=== PATIENT | female | born 1990 | race Caucasian/White ===

== ENCOUNTER 2022-11-17 03:40 | Inpatient (IN) | payer BC, MEDICAID ==
[2022-11-17] MEDS ORDERED: Lactated Ringers 1,000 ML IV ONE (07:58)
[2022-11-17] MEDS ORDERED: Methylergonovine 0.2 MG/1 ML Amp IM PRN (07:58)
[2022-11-17] MEDS ORDERED: Acetaminophen 325 MG Tab PO PRN ×2 (07:58)
[2022-11-17] MEDS ORDERED: Sodium Chloride 0.9% 10 ML Syringe FLUSH PRN (07:58)
[2022-11-17] MEDS ORDERED: Misoprostol 400 MCG (4 X 100 MCG TAB) RECTAL PRN (07:58)
[2022-11-17] MEDS ORDERED: Carboprost Tromethamine 250 MCG/1 ML Amp IM PRN (07:58)
[2022-11-17] MEDS ORDERED: Tranexamic Acid 1,000 MG in Sodium Chloride 0.9% 100 ML IV PRN (07:58)
[2022-11-17] MEDS ORDERED: Lidocaine 1% 30 ML SDV INJECT ONE (07:58)
[2022-11-17] MEDS ORDERED: Oxytocin/Normal Saline 30 UNIT/500 ML BAG IV SCH ×2 (08:00)
[2022-11-17] MEDS ORDERED: Misoprostol 50 MCG (1/2 of 100 MCG) Tab VAG ONE (08:10)
[2022-11-17 09:08] LABS: HEMATOCRIT 38.5 % (37.0-47.0); HEMOGLOBIN 12.6 g/dL (12.0-16.0); MEAN CORPUSCULAR HEMOGLOBIN 30.9 pg (27.0-34.0); MEAN CORPUSCULAR HGB CONC 32.7 g/dL (33.0-35.0); MEAN CORPUSCULAR VOLUME 94.4 fL (80-100); RED BLOOD CELL COUNT 4.08 10^6/uL (4.2-5.4); WHITE BLOOD CELL COUNT,WBC 8.2 10^3/uL (5.0-10.0)
[2022-11-17] MEDS: Misoprostol 25 MCG (1/4 of 100 MCG) Tab VAG PRN ×2 (13:30→17:45)
[2022-11-17] MEDS: Lactated Ringers 1,000 ML IV SCH (21:25)
[2022-11-18] MEDS: Ondansetron 4 MG/2 ML SDV IVPUSH PRN ×3 (00:04→15:50)
[2022-11-18] MEDS: Lactated Ringers 1,000 ML IV SCH ×4 (00:07→20:45)
[2022-11-18] MEDS ORDERED: fentaNYL 100 MCG/2 ML SDV ONE (00:09)
[2022-11-18] MEDS ORDERED: Bupivacaine 0.25% 10 ML SDV ONE (00:10)
[2022-11-18] MEDS ORDERED: ePHEDrine 50 MG/ML SDV IVPUSH PRN ×2 (00:30→02:27)
[2022-11-18] MEDS ORDERED: Ropivacaine 200 MG in Premix Bag 1 BAG EPIDUR SCH (00:30)
[2022-11-18] MEDS ORDERED: Phenylephrine HCl In 0.9% NaCl 1 MG/10 ML Syringe IVPUSH PRN (00:30)
[2022-11-18] MEDS ORDERED: Clindamycin in 0.9 % Sod Chlor 900 MG in Premix Bag 1 BAG IV ONE ×2 (02:25)
[2022-11-18] MEDS ORDERED: diphenhydrAMINE 50 MG/ML SDV IVPUSH PRN (02:27)
[2022-11-18] MEDS ORDERED: Naloxone 2 MG/2 ML Syringe IVPUSH PRN (02:27)
[2022-11-18] MEDS ORDERED: Gentamicin 40 MG/ML 2 ML Vial IV ONE (02:30)
[2022-11-18] MEDS ORDERED: Azithromycin 500 MG in Sodium Chloride 0.9% 250 ML IV ONE (02:43)
[2022-11-18] MEDS ORDERED: Lidocaine 2% with EPINEPHrine 1:200,000 20 ML SDV ONE (03:02)
[2022-11-18] MEDS ORDERED: Oxytocin/Normal Saline 30 UNIT/500 ML BAG ONE (03:17)
[2022-11-18] MEDS ORDERED: Phenylephrine 1% 10 MG/ML SDV ONE (03:28)
[2022-11-18] MEDS ORDERED: SODIUM CHLORIDE 0.9% IV ONE (03:30)
[2022-11-18] MEDS ORDERED: GENTAMICIN IV ONE (03:30)
[2022-11-18] MEDS ORDERED: Oxytocin 10 Units/1 ML SDV ONE (03:43)
[2022-11-18] MEDS ORDERED: Sodium Chloride 0.9% 100 ML ONE (03:49)
[2022-11-18] MEDS: Sodium Chloride 0.9% 10 ML Syringe FLUSH SCH ×3 (06:49→17:22)
[2022-11-18] MEDS: Simethicone 80 MG Tab.Chew PO SCH ×3 (10:15→19:09)
[2022-11-18] MEDS: Prenatal Multivitamin with Calcium/Folic Acid/Iron Tab PO SCH (10:15)
[2022-11-18] MEDS: Ketorolac 30 MG/ML SDV IVPUSH SCH ×3 (10:15→22:20)
[2022-11-18] MEDS ORDERED: Scopolamine 1.5 MG Transdermal Patch TRDERM PRN (10:31)
[2022-11-18 15:16] LABS: HEMATOCRIT 37.7 % (37.0-47.0); HEMOGLOBIN 12.7 g/dL (12.0-16.0); MEAN CORPUSCULAR HEMOGLOBIN 31.8 pg (27.0-34.0); MEAN CORPUSCULAR HGB CONC 33.7 g/dL (33.0-35.0); MEAN CORPUSCULAR VOLUME 94.5 fL (80-100); RED BLOOD CELL COUNT 3.99 10^6/uL (4.2-5.4)
[2022-11-18] MEDS ORDERED: Metoclopramide 10 MG/2 ML SDV IVPUSH PRN (15:30)
[2022-11-19] MEDS: Sodium Chloride 0.9% 10 ML Syringe FLUSH SCH ×3 (03:01→21:25)
[2022-11-19] MEDS: Simethicone 80 MG Tab.Chew PO SCH ×4 (03:01→21:25)
[2022-11-19] MEDS: Lactated Ringers 1,000 ML IV SCH (04:30)
[2022-11-19] MEDS: Ibuprofen 800 MG Tab PO PRN ×3 (05:47→23:04)
[2022-11-19 06:17] LABS: HEMATOCRIT 35.8 % (37.0-47.0); MEAN CORPUSCULAR HGB CONC 33.5 g/dL (33.0-35.0); MEAN CORPUSCULAR VOLUME 95.5 fL (80-100); RED BLOOD CELL COUNT 3.75 10^6/uL (4.2-5.4); WHITE BLOOD CELL COUNT,WBC 13.7 10^3/uL (5.0-10.0)
[2022-11-19] MEDS: Prenatal Multivitamin with Calcium/Folic Acid/Iron Tab PO SCH (09:17)
[2022-11-19] MEDS: Docusate Sodium 100 MG Cap PO PRN ×2 (09:19→21:24)
[2022-11-19] MEDS: Acetaminophen/oxyCODONE 325-5 MG Tab PO PRN ×3 (12:52→21:23)
[2022-11-20] MEDS: Acetaminophen/oxyCODONE 325-5 MG Tab PO PRN ×4 (02:31→21:26)
[2022-11-20] MEDS: Prenatal Multivitamin with Calcium/Folic Acid/Iron Tab PO SCH (09:58)
[2022-11-20] MEDS: Sodium Chloride 0.9% 10 ML Syringe FLUSH SCH ×2 (09:58→21:09)
[2022-11-20] MEDS: Simethicone 80 MG Tab.Chew PO SCH ×4 (09:58→21:09)
[2022-11-20] MEDS: Ibuprofen 800 MG Tab PO PRN (19:37)
[2022-11-20] MEDS: Docusate Sodium 100 MG Cap PO PRN (21:26)
[2022-11-21] MEDS: Acetaminophen/oxyCODONE 325-5 MG Tab PO PRN ×2 (01:47→08:14)
[2022-11-21] MEDS: Prenatal Multivitamin with Calcium/Folic Acid/Iron Tab PO SCH (08:14)
[2022-11-21] MEDS: Docusate Sodium 100 MG Cap PO PRN (08:14)
[2022-11-21] MEDS: Ibuprofen 800 MG Tab PO PRN (08:14)
[2022-11-21] MEDS: Simethicone 80 MG Tab.Chew PO SCH (09:09)
[2022-11-21] MEDS: Sodium Chloride 0.9% 10 ML Syringe FLUSH SCH (09:09)
[2022-11-21 09:10] VITALS: BP 119/66; PULSE 84
== END 2022-11-21 11:45 | disposition home or self-care (01) | DRG 540 ==
LOC: DL.OB 03:40 → MERGE 11-18 03:40 → OBSVTOIN 11-18 03:40
PROVIDERS: ADMIT Family Medicine; ATTEND Family Medicine
PROC: 10D00Z1 Extraction of Products of Conception, Low, Open Approach (ICD-10-PCS; principal; 2022-11-18)
PROC: 10907ZC Drainage of Amniotic Fluid, Therapeutic from Products of Conception, Via Natural or Artificial Opening (ICD-10-PCS; 2022-11-18)
PROC: 3E033VJ Introduction of Other Hormone into Peripheral Vein, Percutaneous Approach (ICD-10-PCS; 2022-11-18)
PROC: 3E0P7VZ Introduction of Hormone into Female Reproductive, Via Natural or Artificial Opening (ICD-10-PCS; 2022-11-18)
DX: O76 Abnormality in fetal heart rate and rhythm complicating labor and delivery (principal); O45.93 Premature separation of placenta, unspecified, third trimester; O99.52 Diseases of the respiratory system complicating childbirth; J45.909 Unspecified asthma, uncomplicated; Z37.0 Single live birth; Z3A.39 39 weeks gestation of pregnancy
CPT/HCPCS: 01961; 01967; 36415; 51702; 85027; 86850; 86900; 86901; A9270-GY; J0456; J1885; J2405; J2590; J2795; J7050; J7120

== ENCOUNTER 2023-01-18 23:42 | Emergency (ER) | payer BC, MEDICAID ==
[2023-01-19 00:05] VITALS: BP 130/66; PULSE 89
== END 2023-01-19 01:56 | disposition home or self-care (01) ==
LOC: DL.ED 23:42
DX: S93.401A Sprain of unspecified ligament of right ankle, initial encounter (principal); Z88.0 Allergy status to penicillin; Z88.8 Allergy status to other drugs, medicaments and biological substances; Z79.899 Other long term (current) drug therapy; X50.1XXA Overexertion from prolonged static or awkward postures, initial encounter
CPT/HCPCS: 73610-RT; 99283

== ENCOUNTER 2024-08-16 20:17 | Emergency (ER) | payer BC, MEDICAID ==
[2024-08-16 21:11] VITALS: BP 134/23; PULSE 80
== END 2024-08-16 21:14 | disposition home or self-care (01) ==
LOC: DL.ED 20:17
DX: L03.113 Cellulitis of right upper limb (principal); Z88.0 Allergy status to penicillin; Z88.1 Allergy status to other antibiotic agents; Z79.51 Long term (current) use of inhaled steroids; Z79.899 Other long term (current) drug therapy
CPT/HCPCS: 99283